=== PATIENT | male | born 1960 ===

== ENCOUNTER 2018-06-19 13:35 | Emergency (ER) | payer OTHER ==
[2018-06-19 13:40] VITALS: BMI 30.2
[2018-06-19 13:42] VITALS: TEMP 97.8
[2018-06-19] MEDS ORDERED: Tdap Vaccine 0.5 ml Vial (10-64 yrs) IM ONE ×2 (14:07→14:19)
[2018-06-19] MEDS ORDERED: Lidocaine 1% Inj (20ml) INFIL ONE (14:07)
[2018-06-19] MEDS ORDERED: Lidocaine Hydrochloride 5 ML INJ ONE (14:12)
[2018-06-19] MEDS ORDERED: Lidocaine Hydrochloride 15 ML INJ ONE (14:21)
--- NOTE | 2018-06-19 15:00 | C.PDOC ---
History Of Present Illness 57 y/o male, with history of hypertension, presents to ED for medical evaluation of laceration to his left index finger. 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 He rates pain 8/10. Denies any recent tetanus, paresthesia, weakness. Chief Complaint (Nursing): Abnormal Skin Integrity History Per: Patient History/Exam Limitations: no limitations Onset/Duration Of Symptoms: Hrs Current Symptoms Are (Timing): Still Present Past Medical History Reviewed: Historical Data, Nursing Documentation, Vital Signs Vital Signs: Last Vital Signs Temp 97.8 F 06/19/18 13:40 Pulse 86 06/19/18 13:40 Resp 18 06/19/18 13:40 BP 146/97 H 06/19/18 13:40 Pulse Ox 99 06/19/18 13:40 - Medical History PMH: HTN Family History: States: No Known Family Hx - Social History Hx Alcohol Use: Yes Hx Substance Use: No - Immunization History Hx Tetanus Toxoid Vaccination: No Hx Influenza Vaccination: No Hx Pneumococcal Vaccination: No Review Of Systems Constitutional: Negative for: Fever, Chills Gastrointestinal: Negative for: Vomiting Musculoskeletal: Positive for: Other (Left index finger laceration). Negative for: Arm Pain Neurological: Negative for: Weakness, Other (paresthesia) Physical Exam - Physical Exam Appears: Non-toxic, No Acute Distress Skin: Warm, Dry Head: Atraumatic, Normacephalic Eye(s): bilateral: Normal Inspection Oral Mucosa: Moist Neck: Supple Cardiovascular: Rhythm Regular, No Murmur Respiratory: Normal Breath Sounds, No Rales, No Rhonchi, No Wheezing Extremity: Other (1cm linear laceration to left index proximal phalanges, neurovascularly intact) Extremity: Bilateral: Normal Color And Temperature Neurological/Psych: Oriented x3, Normal Speech ED Course And Treatment O2 Sat by Pulse Oximetry: 99 (RA) Pulse Ox Interpretation: Normal Laceration - Laceration Repair left index finger Wound Length (In cm): 1cm Description Of Wound: Linear Wound Cleansed With: Betadine, Sterile Saline Anesthesia: Lidocaine 1% Wound Examination: Irrigated With Saline, No FB With Wound Exploration Wound Closure: Suture Suture Technique And Material Used: Interrupted, Nylon Wound Complexity: Simple Medical Decision Making Medical Decision Making: Plan: --Tetanus --Tylenol PO --laceration repair Disposition Counseled Patient/Family Regarding: Diagnosis, Need For Followup, Rx Given - Disposition Referrals: [facility] [place] [Outside] Disposition: HOME/ ROUTINE Disposition Time: 15:01 Condition: STABLE Additional Instructions: Keep wound clean and dry Avoid working construction until wound has healed Keflex two times a day for 5 days if you cannot avoid work Follow up for suture removal in 7-10 days with PMD or ED Return to ED if you develop fever or infection at site Prescriptions: Acetaminophen [Tylenol] 325 mg PO Q6 PRN #30 capsule PRN Reason: Fever >100.4 F Cephalexin [cephalexin] 500 mg PO Q12 #10 cap Instructions: Wound Care (DC), Laceration Repair With Bluejacket (DC) Forms: [employer] (Amharic) Print Language: ARGENTINE - Clinical Impression Clinical Impression: Laceration - 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 - Scribe Statement The provider has reviewed the documentation as recorded by the Jeromeibpetey Steele All medical record entries made by the Jeromeibpetey were at my direction and personally dictated by me. I have reviewed the chart and agree that the record accurately reflects my personal performance of the history, physical exam, medical decision making, and the department course for this patient. I have also personally directed, reviewed, and agree with the discharge instructions and disposition.
[2018-06-19 15:23] VITALS: BP 132/75; PULSE 79; RESP 16; O2SAT 99
== END 2018-06-19 15:22 | disposition home or self-care (01) ==
LOC: C.ER 13:35
DX: S61.211A Laceration without foreign body of left index finger without damage to nail, initial encounter (principal); W45.8XXA Other foreign body or object entering through skin, initial encounter; I10 Essential (primary) hypertension; Z23 Encounter for immunization

== ENCOUNTER 2018-06-28 15:10 | Emergency (ER) | payer OTHER ==
[2018-06-28 15:10] VITALS: BMI 30.2
[2018-06-28 15:38] VITALS: BP 135/81; PULSE 70; RESP 18; TEMP 97; O2SAT 97
--- NOTE | 2018-06-28 16:09 | C.PDOC ---
History Of Present Illness 57 year old male presents to ED requesting suture removal from his left index finger. Patient had the sutures placed on 06/19/18. Patient denies any new numbness, weakness, or pain. Time Seen by Provider: 06/28/18 15:54 Chief Complaint (Nursing): Suture/Staple Removal History Per: Patient History/Exam Limitations: no limitations Onset/Duration Of Symptoms: Laceration (suture removal) Current Symptoms Are (Timing): Still Present Location Of Injury: Left: Hand (sutures to the left index finger) Quality Of Symptoms: denies: Painful Past Medical History Reviewed: Historical Data, Nursing Documentation, Vital Signs Vital Signs: Last Vital Signs Temp 97 F L 06/28/18 15:37 Pulse 70 06/28/18 15:37 Resp 18 06/28/18 15:37 BP 135/81 06/28/18 15:37 Pulse Ox 97 06/28/18 15:37 - Medical History PMH: HTN Surgical History: No Surg Hx Family History: States: Unknown Family Hx - Social History Hx Alcohol Use: Yes Hx Substance Use: No - Immunization History Hx Tetanus Toxoid Vaccination: No Hx Influenza Vaccination: No Hx Pneumococcal Vaccination: No Review Of Systems Constitutional: Negative for: Fever, Chills, Weakness Musculoskeletal: Positive for: Other (sutures to the left index finger) Neurological: Negative for: Weakness, Numbness, Dizziness Physical Exam - Physical Exam Appears: Well, Non-toxic, No Acute Distress Skin: Normal Color, Warm, Dry Head: Atraumatic, Normacephalic Oral Mucosa: Moist Neck: Normal ROM, Supple Chest: Symmetrical, No Deformity Respiratory: No Accessory Muscle Use Extremity: Other (well healed laceration to the left index finger) Neurological/Psych: Oriented x3, Normal Speech, Normal Cognition ED Course And Treatment O2 Sat by Pulse Oximetry: 97 (in RA) Progress Note: Sutures removed with no difficulty. No signs of infection. Re- evaluation. Patient feels better. Discussed results and plan with patient who expresses understanding. All questions answered and there is agreement with the plan to discharge home with instructions. Patient stable for discharge. Return if symptoms persist or worsen. Disposition - Disposition Disposition: HOME/ ROUTINE Disposition Time: 16:09 Condition: STABLE Additional Instructions: Follow up with your PMD within 1-2 days. Return to ED if feel worse. 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 (Celine Hill) - Scribe Statement The provider has reviewed the documentation as recorded by the Scribe (Celine Hill) All medical record entries made by the Scribe were at my direction and personally dictated by me. I have reviewed the chart and agree that the record accurately reflects my personal performance of the history, physical exam, medical decision making, and the department course for this patient. I have also personally directed, reviewed, and agree with the discharge instructions and disposition.
== END 2018-06-28 16:11 | disposition home or self-care (01) ==
LOC: C.ER 15:10
DX: Z48.02 Encounter for removal of sutures (principal)